=== PATIENT | female | born 1970 | race Caucasian/White ===

== ENCOUNTER 2021-12-02 09:08 | Outpatient (CLI) | payer BC ==
[2021-12-02] MEDS ORDERED: Iopamidol-370 76% 500 ML 1 ML ONE (11:22)
== END 2021-12-02 09:09 | disposition home or self-care (01) ==
LOC: CT 09:08
PROVIDERS: ATTEND Internal Medicine Hematology & Oncology
DX: C96.21 Aggressive systemic mastocytosis (principal); K76.9 Liver disease, unspecified
CPT/HCPCS: 74177; Q9967

== ENCOUNTER 2021-12-05 10:45 | Outpatient (CLI) | payer BC | END 2021-12-05 10:46 | disposition home or self-care (01) | LOC: BICMAMMO 10:45 | PROVIDERS: ATTEND Internal Medicine Hematology & Oncology | DX: Z13.820 Encounter for screening for osteoporosis (principal); C96.21 Aggressive systemic mastocytosis; M85.88 Other specified disorders of bone density and structure, other site | CPT/HCPCS: 77075; 77080 ==

== ENCOUNTER 2021-12-07 11:39 | Outpatient (CLI) | payer BC ==
[2021-12-07 22:06] LABS: SARS-CoV-2 PCR by NAA Not Detected (NotDetected)
== END 2021-12-07 11:40 | disposition home or self-care (01) ==
LOC: LABBT 11:39
PROVIDERS: ATTEND Internal Medicine Hematology & Oncology
DX: C96.21 Aggressive systemic mastocytosis (principal); Z20.822 Contact with and (suspected) exposure to COVID-19
CPT/HCPCS: U0003; U0005

== ENCOUNTER 2021-12-12 08:35 | Day surgery (SDC) | payer BC ==
[2021-12-08 13:03] VITALS: BMI 33.2
[2021-12-12 09:15] LABS: Prothrombin Time 12.8 sec (12.0-14.7)
[2021-12-12 09:16] LABS: PTT 34.1 sec (22.9-36.1)
[2021-12-12 09:50] VITALS: BP 122/85; TEMP 98
== END 2021-12-12 12:55 | disposition home or self-care (01) ==
LOC: CT 08:35
PROVIDERS: ATTEND Internal Medicine Hematology & Oncology
PROC: 07DR3ZX Extraction of Iliac Bone Marrow, Percutaneous Approach, Diagnostic (ICD-10-PCS; principal; 2021-12-12)
PROC: 079T3ZX Drainage of Bone Marrow, Percutaneous Approach, Diagnostic (ICD-10-PCS; principal; 2021-12-12)
DX: C96.21 Aggressive systemic mastocytosis (principal); I10 Essential (primary) hypertension; J30.2 Other seasonal allergic rhinitis; Z79.899 Other long term (current) drug therapy; Z88.8 Allergy status to other drugs, medicaments and biological substances
CPT/HCPCS: 20225; 77002; 85610; 85730; 88184; 88237